=== PATIENT | male | born 1965 | race American Indian/Alaskan Native ===

== ENCOUNTER 2017-06-27 16:17 | Emergency (ER) | payer BC ==
[2017-06-27] MEDS ORDERED: TORADOL IM ONE (19:34)
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
[2017-06-27 20:54] VITALS: BP 133/75
== END 2017-06-27 20:59 | disposition home or self-care (01) ==
LOC: ED 16:17
DX: S13.4XXA Sprain of ligaments of cervical spine, initial encounter (principal); V89.2XXA Person injured in unspecified motor-vehicle accident, traffic, initial encounter; Y93.9 Activity, unspecified; Y99.9 Unspecified external cause status; Y92.410 Unspecified street and highway as the place of occurrence of the external cause
CPT/HCPCS: 96372; 99282; J1885